=== PATIENT | male | born 1980 | race Two or more races ===

== ENCOUNTER 2017-11-19 21:37 | Inpatient (IN) | payer SELFPAY ==
[~2017-11-19] VITALS: Ht 160 cm; Wt 80.3 kg
--- NOTE | 2017-11-19 22:00 | NUR ---
36 YO FEMALE BB SELF. PATIENT IS ALERT AND ORIENTED X 1, SELF. PATIENT ADMITS TO METH USE EARLIER TODAY. PATIENT IS PARANIOD AT THIS TIME, KEEPS QUESTIONING ALL OF THER ED STAFF, THINKING THEY ARE GOING TO HARM HIM. PATIENT WAS MOVED CLOSER TO THE NURSES STATION FOR SAFETY, DECREASED EXTERNAL STIMULI IN ROOM. PATIENT REMAINS AGITATED AND PARANOID OF ALL THE [facility] STAFF. PER MD RAY PLACE PATIENT ON ONE HARD RESTRAINT FOR PT SAFETY. RIGHT UPPER ARM PLACED IN RESTRAINTS. PMS DISTAL TO RESTRAINT WNL. 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 18G RIGHT AC IV STARTED, BLOOD SAMPLE OBTAINED. MEDICATED PT ORDERED
--- NOTE | 2017-11-19 22:10 | NUR ---
PATIENT PULLED OUT IV. IV CATH IS INTACT, PLACED 4X4 GAUZE OVER SITE TO STOP BLEEDING. PER MD CALLES, PLACE PATIENT IN 4 POINT RESTRAINT FOR PATIENT SAFETY. PMS DISTAL TO EACH RESTRAINT WNL. 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
[2017-11-19] MEDS ORDERED: IV NS 0.9% 1,000 ML BAG IV ONE (22:30)
[2017-11-19 23:08] LABS: BASOPHILS # (AUTO) 0.1 /CMM (0.0-0.2); BASOPHILS % (AUTO) 0.7 % (0.0-2.0); HEMATOCRIT 49 % (39-51); HEMOGLOBIN 16.9 g/dL (13.5-17.5); LYMPHOCYTES # (AUTO) 1.6 /CMM (0.8-4.8); LYMPHOCYTES % (AUTO) 9.5 % (20.0-44.0); MEAN CORPUSCULAR HEMOGLOBIN 32 PG (26.0-33.0); MEAN CORPUSCULAR HGB CONC 35 g/dl (31.0-36.0); MEAN CORPUSCULAR VOLUME 91 fL (80-96); MONOCYTES # (AUTO) 2.5 /CMM (0.1-1.30); MONOCYTES % (AUTO) 14.4 % (2.0-12.0); NEUTROPHILS # (AUTO) 12.9 /CMM (1.8-8.9); NEUTROPHILS % (AUTO) 75.4 % (43.0-81.0); PLATELET COUNT (AUTO) 205 /CMM (150-450); WHITE BLOOD COUNT (AUTO) 17.2 K/uL (4.3-11.0)
[2017-11-19 23:23] LABS: CALCIUM, SERUM 10.8 mg/dL (8.5-10.1); CARBON DIOXIDE 25 mmol/L (21-32); CHLORIDE 95 mmol/L (98-107); CREATININE 2.9 mg/dL (0.6-1.3); GLUCOSE 100 mg/dL (74-106); POTASSIUM 3.6 mmol/L (3.5-5.1); SODIUM SERUM 138 mmol/L (136-145); UREA NITROGEN, BLOOD 45 mg/dL (7-18)
[2017-11-19 23:38] LABS: ALANINE AMINOTRANSFERASE 69 U/L (12-78); ALBUMIN 5.2 g/dL (3.4-5.0); ALCOHOL, BLOOD < 3 mg/dL (0-0); ALKALINE PHOSPHATASE 66 U/L (46-116); ASPARTATE AMINOTRANSFERASE 140 U/L (15-37); BILIRUBIN,DIRECT 0.2 mg/dL (0.0-0.2); BILIRUBIN,TOTAL 1.4 mg/dL (0.2-1.0); TOTAL PROTEIN, SERUM 10.2 g/dL (6.4-8.2)
[2017-11-19 23:41] LABS: ACETAMINOPHEN 0 ug/ml (10-30)
[2017-11-19 23:51] LABS: LYMPHOCYTES % (MANUAL) 12 % (16-48); MONOCYTES % (MANUAL) 12 % (0-11.0); NEUTROPHILS % (MANUAL) 76 (42-76)
[2017-11-20] VITALS (14 sets, daily range): BP systolic 100–145; BP diastolic 38–92
--- NOTE | 2017-11-20 | NUR ---
PATIENT IS STILL PARANIOD OF ED STAFF, STATES HE THINKS WE ARE GOING TO HURT HIM. 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 VS UPDATED. SKIN WARM AND DRY, RESP EVEN AND UNLABORED. PMS DISTAL TO EACH RESTRAINT WNL. WILL CONTINUE TO MONITOR
[2017-11-20] MEDS ORDERED: LORAZEPAM INJ 2 MG/ML VIAL ONE ×2 (01:38→07:02)
[2017-11-20] MEDS ORDERED: LORAZEPAM INJ 2 MG/ML VIAL IV ONE ×2 (02:00→07:00)
[2017-11-20] MEDS ORDERED: IV NS 0.9% 1,000 ML BAG IV ONE ×2 (02:00→07:30)
--- NOTE | 2017-11-20 02:00 | NUR ---
PATIENT IS STILL PARANIOD OF ED STAFF, STATES HE THINKS WE ARE GOING TO HURT HIM. PATIENT IS ON VENETIAN BLIND CLEANER. VS UPDATED. SKIN WARM AND DRY, RESP EVEN AND UNLABORED. PMS DISTAL TO EACH RESTRAINT WNL. WILL CONTINUE TO MONITOR
[2017-11-20] MEDS ORDERED: OLANZAPINE 10 MG VIAL IM ONE ×2 (02:30→02:42)
--- NOTE | 2017-11-20 03:04 | NUR ---
WHEN IN ROOM, PT IS RAMBLING AND NOT MAKING SENSE. WILL CONTINUE TO ORIENT AND MONITOR FOR ANY CHANGES
--- NOTE | 2017-11-20 03:58 | NUR ---
PT IS STILL RAMBLING. 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 VS UPDATED. SKIN WARM AND DRY, RESP EVEN AND UNLABORED. PMS DISTAL TO EACH RESTRAINT WNL. WILL CONTINUE TO MONITOR
--- NOTE | 2017-11-20 05:58 | NUR ---
PT IS STILL RAMBLING. PATIENT IS ON CHIP TUNER. VS UPDATED. SKIN WARM AND DRY, RESP EVEN AND UNLABORED. PMS DISTAL TO EACH RESTRAINT WNL. WILL CONTINUE TO MONITOR
--- NOTE | 2017-11-20 07:01 | NUR ---
DR. COSME AT BEDSIDE FOR EVAL.
--- NOTE | 2017-11-20 07:15 | NUR ---
PT IS RAMBLING MOVING AROUND. 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 VS UPDATED. SKIN WARM AND DRY, RESP EVEN AND UNLABORED. PMS DISTAL TO EACH RESTRAINT WNL. WILL CONTINUE TO MONITOR
--- NOTE | 2017-11-20 07:30 | NUR ---
PT IS RAMBLING MOVING AROUND. PATIENT IS ON SPORTS AGENT. VS UPDATED. SKIN WARM AND DRY, RESP EVEN AND UNLABORED. PMS DISTAL TO EACH RESTRAINT WNL. WILL CONTINUE TO MONITOR
--- NOTE | 2017-11-20 07:45 | NUR ---
PT IS RAMBLING MOVING AROUND. 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 VS UPDATED. SKIN WARM AND DRY, RESP EVEN AND UNLABORED. PMS DISTAL TO EACH RESTRAINT WNL. WILL CONTINUE TO MONITOR
[2017-11-20] MEDS ORDERED: HALOPERIDOL LACTATE INJ 5 MG/ML VIAL ONE (07:51)
[2017-11-20] MEDS ORDERED: HALOPERIDOL LACTATE INJ 5 MG/ML VIAL IM ONE (08:00)
--- NOTE | 2017-11-20 08:00 | NUR ---
PT IS RAMBLING MOVING AROUND. 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 VS UPDATED. SKIN WARM AND DRY, RESP EVEN AND UNLABORED. PMS DISTAL TO EACH RESTRAINT WNL. WILL CONTINUE TO MONITOR
--- NOTE | 2017-11-20 08:15 | NUR ---
PT STILL AGITATED AFTER HALDOL IM
[2017-11-20] MEDS ORDERED: MAG HYDROX/AL HYDROX/SIMETH 30 ML UDC PO PRN (08:30)
[2017-11-20] MEDS ORDERED: ZOLPIDEM TARTRATE 5 MG TABLET PO PRN (08:30)
[2017-11-20] MEDS ORDERED: MAGNESIUM HYDROXIDE 30 ML UDC PO PRN (08:30)
[2017-11-20] MEDS ORDERED: LORAZEPAM INJ 2 MG/ML VIAL IV PRN (08:30)
[2017-11-20] MEDS ORDERED: ACETAMINOPHEN 325 MG TABLET PO PRN (08:30)
[2017-11-20] MEDS ORDERED: ONDANSETRON HCL/PF 4 MG/2 ML VIAL IVP PRN (08:30)
[2017-11-20] MEDS ORDERED: Z GUARD REMEDY 2 OZ OINT TP PRN (08:30)
--- NOTE | 2017-11-20 08:30 | NUR ---
PT IS RAMBLING MOVING AROUND. 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 VS UPDATED. SKIN WARM AND DRY, RESP EVEN AND UNLABORED. PMS DISTAL TO EACH RESTRAINT WNL. WILL CONTINUE TO MONITOR
--- NOTE | 2017-11-20 08:45 | NUR ---
PT IS RAMBLING MOVING AROUND. PATIENT IS ON ENROUTE CONTROLLER. VS UPDATED. SKIN WARM AND DRY, RESP EVEN AND UNLABORED. PMS DISTAL TO EACH RESTRAINT WNL. WILL CONTINUE TO MONITOR
--- NOTE | 2017-11-20 09:00 | NUR ---
URINE SAMPLE COLLECTED SENT TO LAB
[2017-11-20 09:34] LABS: APPEARANCE,URINE CLEAR (CLEAR); BILIRUBIN,URINE NEGATIVE (NEGATIVE); BLOOD, URINE 3+ Ery/uL (NEGATIVE); COLOR,URINE YELLOW (YELLOW); KETONES,URINE 2+ (NEGATIVE); LEUKOCYTE ESTERASE ,URINE NEGATIVE (NEGATIVE); NITRITE, URINE NEGATIVE (NEGATIVE); PROTEIN,URINE 1+ mg/dl (NEGATIVE); UGLUCOSE NEGATIVE (NEGATIVE); UROBILINOGEN,URINE 0.2 EU/dL (0.2)
[2017-11-20 09:51] LABS: BACTERIA,URINE Few /HPF (None Seen); HYALINE CASTS, URINE Moderate /LPF (None Seen); SQUAMOUS EPITHELIAL CELL,UR None Seen /HPF (None Seen); WBC,URINE 0-2 /HPF (0-3)
--- NOTE | 2017-11-20 10:07 | NUR ---
GAVE REPORT TO NANCY [facility] ICU [address] KIMBLE
[2017-11-20] MEDS ORDERED: MORPHINE SULFATE INJ 4 MG/ML DISP.SYRIN IV PRN (11:00)
[2017-11-20] MEDS: IV NS 0.9% 1,000 ML IV PRN ×2 (11:18→17:53)
--- NOTE | 2017-11-20 11:30 | NUR ---
BIOFUELS PLANT MANAGER NOTES RECEIVED PATIENT DROWSY , AROUSES EASILY TO VERBAL STIMULI , NOT DION CUTE DISTRESS , RESPIRATIONS EVEN AND UNLABORED , SPO2 OF 100% VIA 2LPM NC , ST 105 ON BEDSIDE MONITOR , SKIN ASSESSMENT DONE , NO WOUNDS NOTED , IV OF L FA # 18 PATENT AND INTACT ATTACHED NS @ 150ML/HR , ALL NEEDS ATTENDED , BED ON LOW AND LOCKED POSITION , SIDE RAILS X2 ,CALL LIGHT WITHIN REACH , HOB @ 35 , BED ALARM MADE AUDIBLE , ADMISSION ORDERED CARRIED OUT , WILL CONTINUE TO MONITOR ,
--- NOTE | 2017-11-20 13:16 | NUR ---
NEON INSTALLER NOTES FAXED FACE SHEET TO [facility] FOR PSYCH CONSULT UNDER DR TOBIAS .
--- NOTE | 2017-11-20 16:12 | NUR ---
BRICKLAYER TENDER NOTES SEEN AND EVALUATED BY DR DENNEY , DISCUSSED PT HISTORY AND CC , NO SUICIDAL IDEATION NOTED AT THIS TIME , PT CALM AND COOPERATIVE NOTIFIED DR KIMBLE THAT PATIENT RIGHT EYES NOTED WITH REDNESS , PER MD START PT ON TOBRADEX ONE DROP Q4 X 5 DAYS , ORDERS CARRIED OUT
[2017-11-20] MEDS ORDERED: OLANZAPINE 5 MG/TAB.RAPDIS SL PRN (16:30)
[2017-11-20] MEDS: TOBRAMYCIN/DEXAMETH OPHTH DORPS 2.5 ML BOTTLE RIGHTEYE SCH ×3 (17:32→23:43)
--- NOTE | 2017-11-20 19:30 | NUR ---
REGIONAL SALES EXECUTIVE INITIAL NOTES RECEIVED PATIENT AWAKE A/OX3, ABLE TO MAKE NEEDS KNOWN. DROWSY, AROUSABLE. DENIES PAIN OR DISCOMFORT. RESPIRATIONS EVEN AND UNLABORED ON 2LPMO2 VIA NC. SKIN WARM AND DRY TO TOUCH. ON TELE MONITOR SR 93. WITH IVF RUNNING AT 150ML/HR. ORAL MUCOSA DRY. LUNGS CLEAR TO AUSCULTATE, BOWEL SOUNDS PRESENT. HOB ELEVATED. SIDE RAILS UP AND LOCKED. BED KEPT AT LOWEST POSITION. CALL LIGHT KEPT WITHIN EASY REACH. WILL CONTINUE TO MONITOR.
[2017-11-21] VITALS (11 sets, daily range): BP systolic 91–123; BP diastolic 39–77
[2017-11-21] MEDS: IV NS 0.9% 1,000 ML IV PRN (00:51)
--- NOTE | 2017-11-21 03:30 | NUR ---
SOLE ASSESSOR NOTES PATIENT MORE AWAKE, ASKING ABOUT BEING DISCHARGED, INFORMED PATIENT TO SPEAK WITH MD LATER TODAY. ABLE TO BATH HIMSELF AND PROVIDE SELF CARE WITH ADLS. LINENS CHANGED. DENIES SOB. DENIES PAIN OR DISCOMFORT. WILL CONTINUE TO MONITOR.
[2017-11-21 05:11] LABS: BASOPHILS % (AUTO) 0.4 % (0.0-2.0); EOSINOPHILS % (AUTO) 0.4 % (0.0-6.0); HEMATOCRIT 40 % (39-51); HEMOGLOBIN 13.8 g/dL (13.5-17.5); LYMPHOCYTES # (AUTO) 2.4 /CMM (0.8-4.8); LYMPHOCYTES % (AUTO) 33.2 % (20.0-44.0); MEAN CORPUSCULAR HEMOGLOBIN 32 PG (26.0-33.0); MEAN CORPUSCULAR HGB CONC 35 g/dl (31.0-36.0); MEAN CORPUSCULAR VOLUME 92 fL (80-96); MONOCYTES % (AUTO) 13.7 % (2.0-12.0); NEUTROPHILS # (AUTO) 3.7 /CMM (1.8-8.9); NEUTROPHILS % (AUTO) 52.3 % (43.0-81.0); PLATELET COUNT (AUTO) 146 /CMM (150-450); RDW COEFFICIENT OF VARIATION 12.7 (11.5-15.0); RED BLOOD CELL COUNT(AUTO) 4.31 MIL/uL (4.5-6.0); WHITE BLOOD COUNT (AUTO) 7.2 K/uL (4.3-11.0)
[2017-11-21] MEDS: TOBRAMYCIN/DEXAMETH OPHTH DORPS 2.5 ML BOTTLE RIGHTEYE SCH ×2 (05:20→08:50)
[2017-11-21 05:27] LABS: ALBUMIN 3.1 g/dL (3.4-5.0); BILIRUBIN,TOTAL 1.3 mg/dL (0.2-1.0); CALCIUM, SERUM 9.1 mg/dL (8.5-10.1); CREATININE 0.9 mg/dL (0.6-1.3); MAGNESIUM 2.1 mg/dL (1.8-2.4); PHOSPHORUS 2.7 mg/dL (2.5-4.9); POTASSIUM 3.8 mmol/L (3.5-5.1); TOTAL PROTEIN, SERUM 6.4 g/dL (6.4-8.2)
--- NOTE | 2017-11-21 05:49 | NUR ---
INSPECTOR CANNED FOOD RECONDITIONING NOTES PATIENT REQUESTED TO HAVE IVF REMOVED, EDUCATED ON THE NEED FOR IV HYDRATION, INSISTED HE NEEDS IT. PATIENT STATES HE STILL DOESN'T WANT IT. PATIENT WITH GOOD PO WATER INTAKE. WILL CONTINUE TO MONITOR.
--- NOTE | 2017-11-21 06:29 | NUR ---
FRATERNITY ADVISER CLOSING NOTES NO SIGNIFICANT CHANGES OVERNIGHT. PATIENT RESTING COMFORTABLY, MORE AWAKE. ABLE TO MAKE NEEDS KNOWN. ALL NEEDS ANTICIPATED AND MET. SKIN WARM AND DRY TO TOUCH. SIDE RAILS UP AND LOCKED. BED KEPT AT LOWEST POSITION. CALL LIGHT KEPT WITHIN EASY REACH. WILL ENDORSE CONTINUITY OF CARE TO AM NURSE.
--- NOTE | 2017-11-21 07:45 | NUR ---
ICU/RN - Initial Notes Received pt in bed asleep. No acute distress. No s/s of pain or discomfort. Vital signs stable. safety and comfort measures in place. Will continue to monitor pt closely.
--- NOTE | 2017-11-21 10:00 | NUR ---
ICU/RN - Notes Pt removed gown and monitoring equipment, anticipating to go home. Pt states "I need to go home, I have work to do." Dionisio called and made aware of pt's strong need to go home, MD states he will visit as soon as he can. Pt states he will wait to see doctor prior to attempting to go home. Per charge nurse, Dr Nichole cleared pt for Med Surg status. Pt is alert and oriented x3, ambulatory with steady gait, anxious to go home. Denies that illicit drug use taken at home was an attempt of suicide. Pt's friend/roommate Sukumar at bedside.
--- NOTE | 2017-11-21 10:24 | NUR ---
ICU/RN - AMA Pt left against medical advice. Education provided regarding risks about leave AMA, and to return to emergency room [facility] if not feeling well. Pt verbalized full understanding. Denied exit care instructions. All belongings taken with pt. Pt ambulatory with steady gait. IV lines removed with no s/s of complications. Pt left facility via private car with friend Sukumar. Addendum: 11/21/17 at 1029 by JANEL STRAUSS RN Charge nurse Arie, Dr Nichole, and Nursing Fan Engine Engineer Samina made aware of pt leaving AMA.
== END 2017-11-21 10:14 | disposition left against medical advice (07) | DRG 917 ==
LOC: ER 21:38 → ICU 11-20 10:29
PROVIDERS: ADMIT Internal Medicine; ATTEND Internal Medicine
DX: T40.7X1A Poisoning by cannabis (derivatives), accidental (unintentional), initial encounter (principal); N17.0 Acute kidney failure with tubular necrosis; I21.4 Non-ST elevation (NSTEMI) myocardial infarction; G92 Toxic encephalopathy; M62.82 Rhabdomyolysis; H10.9 Unspecified conjunctivitis; Y92.009 Unspecified place in unspecified non-institutional (private) residence as the place of occurrence of the external cause; D72.829 Elevated white blood cell count, unspecified; F15.159 Other stimulant abuse with stimulant-induced psychotic disorder, unspecified; F14.159 Cocaine abuse with cocaine-induced psychotic disorder, unspecified; T43.621A Poisoning by amphetamines, accidental (unintentional), initial encounter; T40.5X1A Poisoning by cocaine, accidental (unintentional), initial encounter; F29 Unspecified psychosis not due to a substance or known physiological condition
CPT/HCPCS: 36415; 80048-TC; 80053-TC; 80061-TC; 80076-TC; 80305; 81000-TC; 82550-TC; 82553-TC; 83735-TC; 84100-TC; 84484-TC; 85025-TC; 87081-TC; A4606; G0480; J1630; J2060; J3490; J7030; Z7610